=== PATIENT | female | born 1965 | race Caucasian/White ===

== ENCOUNTER 2017-01-11 15:43 | Emergency (ER) | payer OTHER ==
[2017-01-11] MEDS ORDERED: 0.9 % SODIUM CHLORIDE 1,000 ML IV ONE (16:06)
[2017-01-11] MEDS ORDERED: KETOROLAC TROMETHAMINE 30 MG/1ML VIAL IVP ONE (16:06)
[2017-01-11 16:26] LABS: BASOPHILS % 0.9 (0.0-1.5); EOSINOPHILS % 2.5 % (0.0-6.8); MEAN CORPUSCULAR HEMOGLOBIN 27.5 pg (28.0-34.0); MEAN CORPUSCULAR VOLUME 83.6 fl (80.0-100.0); NEUTROPHILS # 3.8 # k/uL (1.4-7.7)
--- NOTE | 2017-01-11 16:31 | ED Physician Documentation ---
General Adult - HISTORIAN Historian: patient - HPI Stated Complaint: left chest pain Chief Complaint: General Adult Additional Information: Working at [employer] doing her usual job which involves reaching and lifting, when she had sharp stabbing pain left upper chest, radiates straight through to back. This began about 2 pm. Pain only occurs when she takes a deep breath. No pain at rest. No SOB. - ROS CONST: no problems - PAST HX Past History: other (anxiety) Allergies/Adverse Reactions: Allergies Allergy/AdvReac Type Severity Reaction Status Date / Time codeine AdvReac Severe severe Verified 01/11/17 15:57 nausea/vomiting - SOCIAL HX Smoking History: cigarettes - FAMILY HX Family History: Yes (MGM with heart problems in 30's) - VITAL SIGNS Vital Signs: Vital Signs Temp Pulse Resp BP Pulse Ox 98.1 F 70 22 119/52 94 01/11/17 15:58 01/11/17 15:58 01/11/17 15:58 01/11/17 15:58 01/11/17 15:58 - REVIEWED ASSESSMENTS Nursing Assessment Reviewed: Yes Vitals Reviewed: Yes Progress - Progress Progress: EKG: sinus rhthm, 66 BPM, no ischemic changes Examination: PA and lateral chest. History: Evaluate lung crooks. Findings: PA lateral chest demonstrate a normal cardiac and mediastinal silhouette. No focal infiltrate. No effusion. No blunting of the costophrenic margins. Osseous structures are appropriate for age. Impression: No acute process. Electronically signed on Jan 11, 2017 4:42:59 PM CDT by: Sterling lynn 166. ED Results Lab/Radiology - Lab Results Lab Results: Lab Results 01/11/17 16:20 WBC 6.50 K/ul K/ul (4.00-12.00) RBC 4.45 M/ul M/ul (3.90-5.20) Hgb 12.3 g/dL g/dL (12.0-16.0) Hct 37.2 % % (34.5-46.5) MCV 83.6 fl fl (80.0-100.0) MCH 27.5 pg L pg (28.0-34.0) MCHC 32.9 g/dL g/dL (30.0-36.0) RDW 17.4 % H % (11.3-14.3) Plt Count 166 K/mm3 K/mm3 (130-400) Neut % (Auto) 58.5 % % (39.0-79.0) Lymph % (Auto) 32.1 % % (16.0-50.0) [place] % (Auto) 5.0 % % (0.0-11.0) Eos % (Auto) 2.5 % % (0.0-6.8) Baso % (Auto) 0.9 (0.0-1.5) Neut # (Auto) 3.8 # k/uL # k/uL (1.4-7.7) Lymph # (Auto) 2.1 # k/uL # k/uL (0.6-4.0) [place] # (Auto) 0.3 # k/uL # k/uL (0.0-0.9) Eos # (Auto) 0.2 # k/uL # k/uL (0.0-0.6) Baso # (Auto) 0.1 # k/uL # k/uL (0.0-0.5) Reactive Lymphs % 1.0 % % (0.0-5.0) Reactive Lymphs # 0.1 # k/uL # k/uL (0.0-0.8) - Orders Orders: ED Orders Category Date Time Status Place IV Lock 1T Care 01/11/17 16:06 Active CHEST P.A.&LAT 2 VIEWS [RAD] Stat Exams 01/11/17 Ordered CBC/PLATELET/DIFF Routine Lab 01/11/17 16:20 Completed CMP Routine Lab 01/11/17 16:20 Received TROPONIN I (cTnI) Stat Lab 01/11/17 16:20 Received 0.9 % Sodium Chloride [Normal Saline] 1,000 ml Med 01/11/17 16:06 Active IV Q1H Ketorolac Tromethamine [Toradol] Med 01/11/17 16:06 Discontinued 30 mg IVP NOW ONE EKG WITH COMPARISON Stat Ther 01/11/17 Ordered General Adult Physical Exam - PHYSICAL EXAM GENERAL APPEARANCE: mild distress EENT: eye inspection normal, ENT inspection normal, pharynx normal NECK: normal inspection, supple RESPIRATORY: chest non-tender, breath sounds normal CVS: reg rate & rhythm, heart sounds normal, no murmur ABDOMEN: soft, normal bowel sounds, non-tender RECTAL: deferred BACK: normal inspection SKIN: warm/dry, normal color EXTREMITIES: no evidence of injury, no edema NEURO: CN's nml as tested, motor nml, sensation nml, cognition normal Discharge Clincal Impression: Pleuritic chest pain Referrals: Giovanny Vines MD [Primary Care Provider] - 2 Days Additional Instructions: You can apply heat to the sore area several times a day. Return to the ER or see your provider if you develop fever. You can take 600 mg of ibuprofen 4 times a day with food for a week. Condition: Good Disposition: 01 HOME, SELF-CARE Decision to Admit: NO Decision Time: 17:05
[2017-01-11 16:44] LABS: eGFR (African) > 60; eGFR (Non-African) > 60
[2017-01-11 17:24] VITALS: BP 126/65
--- NOTE | 2017-01-11 19:00 | Diagnostic Imaging Report ---
FARHAD BALLARD - TIM [facility] [address] [facility] [address] [place] [address]. [id number] Report Submission Date: Jan 11, 2017 4:42:59 PM CDT Patient Study Name: FRANCIA MORROW Date: Jan 11, 2017 4:27:52 PM CDT Modality Type: CR Gender: F Description: CHEST : 63 Institution: [facility] Physician: FARHAD BALLARD Examination: PA and lateral chest. History: Evaluate lung crooks. Findings: PA lateral chest demonstrate a normal cardiac and mediastinal silhouette. No focal infiltrate. No effusion. No blunting of the costophrenic margins. Osseous structures are appropriate for age. Impression: No acute process. Electronically signed on Jan 11, 2017 4:42:59 PM CDT by: Sterling POSADAS
== END 2017-01-11 17:23 | disposition home or self-care (01) ==
LOC: ED 15:43 → EDSTATUS 15:44 → ED 17:23
DX: R07.81 Pleurodynia (principal)
CPT/HCPCS: 71020; 80053; 84484; 85025; 85379; J1885; J7030; 96361; 96374; 99283; S1016

== ENCOUNTER 2017-08-13 16:54 | Emergency (ER) | payer BC, OTHER ==
--- NOTE | 2017-08-13 17:32 | ED Physician Documentation ---
Upper Extremity Problem - HISTORIAN Historian: patient, spouse - HPI Stated Complaint: right wrist pain Chief Complaint: Upper Extremity Problem Additional Information: bumped rt wrist 2 weeks ago. still hurts hetal base thumb. has worn otc splint w /o help tender to touch Location: R wrist Onset: days ago Timing: still present, worse Duration: constant Recent Injury: Yes Severity: moderate Associated Symptoms: denies: fever, chills, sweating, shortness of breath, difficulty breathing Exacerbated By: change in position Quality: pain, tenderness, tingling. denies: swelling, numbness - ROS CONST: no problems EYES/ENT: none. denies: problems with vision, sore throat CVS/RESP: none GI/: none NEURO/PSYCH: denies: headache, dizziness, anxiety - PAST HX Past History: other (depression anxiety) Surgeries/Procedures: other (back foot rt rotator cuff) Allergies/Adverse Reactions: Allergies Allergy/AdvReac Type Severity Reaction Status Date / Time codeine AdvReac Severe severe Verified 08/13/17 17:14 nausea/vomiting Home Medications: Ambulatory Orders Medication Instructions Recorded Varenicline Tartrate [Chantix] 1 mg PO BID 08/13/17 - SOCIAL HX Smoking History: cigarettes Alcohol Use: none Drug Use: none - FAMILY HX Family History: no significant history - VITAL SIGNS Vital Signs: Vital Signs Temp Pulse Resp BP Pulse Ox 98.1 F 86 18 120/77 97 08/13/17 17:08 08/13/17 17:08 08/13/17 17:08 08/13/17 17:08 08/13/17 17:08 - REVIEWED ASSESSMENTS Nursing Assessment Reviewed: Yes Vitals Reviewed: Yes ED Results Lab/Radiology - Radiology Radiology Impressions: no fracture seen on xray - Orders Orders: ED Orders Category Date Time Status Cock-Up Splint 1T Care 08/13/17 18:08 Ordered WRIST 3 VIEWS OR MORE [RAD] Stat Exams 08/13/17 Ordered Upper Extremity Problem - EXAM General Appearance: mild distress Skin: warm/dry, normal color. No: cyanosis, diaphoresis Shoulder Exam: normal inspection Elbow/Forearm Exam: normal inspection Wrist Exam: bone tenderness, limited ROM. No: normal ROM, deformity, ecchymosis Hand Exam: normal inspection, non-tender Neuro/Tendon: normal sensation, normal motor functions CVS: reg rate & rhythm, heart sounds normal Vascular: no vascular compromise. No: abnml capillary refill Peripheral: sensation nml, motor nml Central: oriented X3. No: depressed mood/affect Respiratory: no resp. distress Abdomen: non-tender Discharge Clincal Impression: rt wrist sprain Referrals: Giovanny Vines MD [Primary Care Provider] - 2 Days Comments: cock up splint- rest ibu Condition: Good Disposition: 01 HOME, SELF-CARE Decision to Admit: NO Decision Time: 18:09
--- NOTE | 2017-08-13 18:24 | Diagnostic Imaging Report ---
[facility] [address] [facility] [address] [address] Report Submission Date: Aug 13, 2017 5:46:44 PM AUTHORIZATION COORDINATOR Patient Study Name: FRANCIA MORROW Date: Aug 13, 2017 5:31:10 PM AUTHORIZATION COORDINATOR Modality Type: DX Gender: F Description: UPPER EXTREMITY : 63 Institution: [facility] Physician: MICKEY THOMASON Examination: Plain film right hand History: PT STATES SHE HIT HAND/WRIST ON SOMETHING X1WEEK. PAIN, SWELLING. (Hx) Comparison exams: None available Findings: 3 views the right hand demonstrate normal cortical margins. No fracture. No dislocation. No soft tissue abnormality. Impression: No acute osseous abnormality Electronically signed on Aug 13, 2017 5:46:44 PM AUTHORIZATION COORDINATOR by: Sterling POSADAS
[2017-08-13 18:38] VITALS: BP 118/70
== END 2017-08-13 18:26 | disposition home or self-care (01) ==
LOC: ED 16:54
DX: S63.501A Unspecified sprain of right wrist, initial encounter (principal); X58.XXXA Exposure to other specified factors, initial encounter; Y93.9 Activity, unspecified; Y92.9 Unspecified place or not applicable; Y99.9 Unspecified external cause status
CPT/HCPCS: 73110; L3908; 99282; 99283

== ENCOUNTER 2017-08-29 08:18 | Outpatient (CLI) | payer BC ==
--- NOTE | 2017-08-29 08:49 | Diagnostic Imaging Report ---
EDUARDO RAYGOZA [facility] [address] [facility] [address] [address] Report Submission Date: Aug 29, 2017 8:44:28 AM OPERATIONS EXPERT Patient Study Name: FRANCIA MORROW Date: Aug 29, 2017 8:27:11 AM OPERATIONS EXPERT Modality Type: DX Gender: F Description: UPPER EXTREMITY : 63 Institution: [facility] Physician: EDUARDO RAYGOZA Examination: Plain film right hand History: PT HIT DOOR X 4 WEEKS AGO, RT WRIST PAIN ON LATERAL ASPECT (Hx) Comparison exams: None available Findings: 3 views the right hand demonstrate normal cortical margins. No fracture. No dislocation. Minimal degenerative disease involving the 1st carpal metacarpal articulation. No soft tissue abnormality. Impression: No acute osseous abnormality Electronically signed on Aug 29, 2017 8:44:28 AM OPERATIONS EXPERT by: Sterling POSADAS
== END 2017-08-29 08:30 ==
LOC: RAD 08:18
PROVIDERS: ATTEND Family Medicine
DX: M25.531 Pain in right wrist (principal)
CPT/HCPCS: 73110

== ENCOUNTER 2018-08-01 09:50 | Outpatient (CLI) | payer BC ==
--- NOTE | 2018-08-01 15:29 | Diagnostic Imaging Report ---
JOSSELIN LOVE [facility] [address] [facility] [address] [address] Report Submission Date: Aug 01, 2018 1:25:06 PM GROCERY TEAM MEMBER Patient Study Name: FRANCIA MORROW Date: Aug 01, 2018 9:59:25 AM GROCERY TEAM MEMBER Modality Type: DX Gender: F Description: FOREARM 2 VIEWS : 63 Institution: [facility] Physician: JOSSELIN LOVE Examination: Plain film left forearm History: CONTUSION OF LT FOREARM NECK PAIN Comparison exams: None available Findings: 2 views of the left radius and ulna demonstrates normal cortical margins. No evidence for fracture line. No soft tissue abnormality. Impression: No acute osseous abnormality. Electronically signed on Aug 01, 2018 1:25:06 PM GROCERY TEAM MEMBER by: Sterling POSADAS
--- NOTE | 2018-08-01 15:31 | Diagnostic Imaging Report ---
<p>Your browser does not support iframes.</p> JOSSELIN LOVE [facility] [address] [facility] [address] [address] Report Submission Date: Aug 01, 2018 1:40:36 PM HOSPITAL MANAGER Patient Study Name: FRANCIA MORROW Date: Aug 01, 2018 10:07:30 AM HOSPITAL MANAGER Modality Type: DX Gender: F Description: C SPINE 2 OR 3 VIEWS : 63 Institution: [facility] Physician: JOSSELIN LOVE Cervical spine History: Neck pain. Fell on ice AP, lateral and odontoid projections of the cervical spine demonstrate incomplete assessment of the dens on the open-mouth odontoid projections due to overlying teeth. The lateral masses of C1 and C2 are aligned. There is no prevertebral soft tissue swelling. The dens appears normal on the lateral radiograph. Vertebral body height and intervertebral disc space height is maintained. Spinous processes are intact. Impression: Limited assessment of the dens on the open-mouth odontoid projections. If there is concern for odontoid fracture, repeat odontoid radiographs would be recommended. Otherwise, no evidence for acute fracture or dislocation. Electronically signed on Aug 01, 2018 1:40:36 PM HOSPITAL MANAGER by: Ghislaine POSADAS
== END 2018-08-01 09:52 ==
LOC: RAD 09:50
PROVIDERS: ATTEND Family Medicine
DX: S50.12XA Contusion of left forearm, initial encounter (principal); S16.1XXA Strain of muscle, fascia and tendon at neck level, initial encounter; W00.9XXA Unspecified fall due to ice and snow, initial encounter
CPT/HCPCS: 72040; 73090